=== PATIENT | male | born 1930 | race Caucasian/White ===

== ENCOUNTER 2016-12-24 19:05 | Emergency (ER) | payer MEDICARE, OTHER ==
[~2016-12-24 19:05] MED LIST: AMLO10TA5 PO; ASP81TEC PO; BRIM10DR12 OS; COU5 PO; DIGO125T PO; DORZ10DR20 OU; DOXY100T2 PO; FURO40TA PO; LATA2.5D6 OU; METO25T PO; PRO5 PO; ZES5 PO; ZOC20 PO; [UNRECOGNIZED DRUG - CODE] PO
[2016-12-24] MEDS ORDERED: Rocuronium 10 mg/mL 5 mL Inj IV ONE (19:06)
[2016-12-24] MEDS ORDERED: Propofol 10,000 mCg/mL 100 mL Inj ONE (19:18)
[2016-12-24] MEDS ORDERED: 0.9% Sodium Chloride 1,000 ML IV ONE (19:25)
[2016-12-24 19:34] LABS: BASOPHILS % (AUTO) 0.3 % (0-3); EOSINOPHILS % (AUTO) 0.9 % (0-5); MONOCYTES % (AUTO) 10.7 % (4-12); Mean Corpuscular Hemoglobin 27.7 pg (27.0-35.0); Mean Corpuscular Volume 87.7 fL (81-100); NEUTROPHILS % (AUTO) 41.7 % (40-74); Platelet Count 205 bil/L (150-400)
--- NOTE | 2016-12-24 19:40 | ED.REPORT ---
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 Medics were called to the patient's home because he had become unresponsive. Upon their arrival he was sitting upright the subsequently began to demonstrate seizure-like activity with unequal pupils. In route seizure activity worsened and he became apneic at which time bag valve mask ventilation was initiated. There is no known traumatic injury. There is no known history of stroke or seizure disorder. Nursing Notes Stated Complaint: CODE STROKE Nursing Notes Reviewed: Yes Allergies: Coded Allergies: No Known Allergies (Unverified , 12/17/11) Scheduled AmLODIPine-Expunged Drug, Do Not Renew! (AmLODIPine-Expunged Drug, Do Not Renew! ) 10 Mg Tablet 10 MG PO DAILY This medication is to help control blood pressure Aspirin-Expunged Drug, Do Not Renew! (Aspirin EC-Expunged Drug, Do Not Renew!) 81 Mg Tablet 81 MG PO DAILY Brimonidine-Expunged Drug, Do Not Renew! (Brimonidine-Expunged Drug, Do Not Renew!) 10 Ml Drops 1 DROP OS BID Digoxin-Expunged Drug, Do Not Renew! (Digoxin-Expunged Drug, Do Not Renew!) 125 Mcg Tablet 125 MCG PO DAILY This medication helps regulate heart rate and rhythm Doxycycline Hyclate (Doxycycline) 100 Mg Tab 100 MG PO BID Finasteride-Expunged Drug, Do Not Renew! (Proscar-Expunged Drug, Do Not Renew!) 5 Mg Tablet 5 MG PO HS Furosemide-Expunged Drug, Do Not Renew! (Lasix-Expunged Drug, Do Not Renew!) 40 Mg Tablet 80 MG PO DAILY Your dose has been decreased to ONCE a day. This is a diuretic. Lisinopril-Expunged Drug, Do Not Renew! (Lisinopril-Expunged Drug, Do Not Renew! ) 5 Mg Tablet 5 MG PO BID Your dose has been decreased to 5mg daily. This medication helps to control blood pressure MAGNESIUM OXIDE-Expunged Drug, Do Not Renew! (MAG-OX 400-Expunged Drug, Do Not Renew!) 400 Mg Tablet 400 MG PO BID Metoprolol Tart-Expunged Drug, Do Not Renew! (Metoprolol Tart-Expunged Drug, Do Not Renew!) 25 Mg Tablet 12.5 MG PO BID do not take if your heart rate is less than 55 beats per minute. Simvastatin-Expunged Drug, Choose New Med! (Simvastatin-Expunged Drug, Choose New Med!) 20 Mg Tablet 40 MG PO HS This medication helps to control blood cholesterol levels Timol/Dorzol-Expunged Drug, Do Not Renew! (Timol/Dorzol Oph-Expunged Drug, Do Not Renew!) 10 Ml Drops 1 DROP OU BID Warfarin Inactive Drug Do Not Use (Coumadin Inactive Drug Do Not Use) 5 Mg Tablet 5 MG PO DAILY General Time Seen by Provider: 19:24 Chief Complaint Other (Stroke-like symptoms ) Hx Obtained From: EMS Arrived By: Ambulance Sudden in Onset?: Yes Onset Occurred: Just prior to arrival Symptom Duration: Since onset Progression Since Onset: Gradually worsening Pertinent Negative: Pt denies other symptoms Recent Healthcare: No recent doctor visit, No recent hospitalization Risk Factors TPA Administration/Criteria Stroke Thrombolytic Therapy : TPA Considered: Yes Neurologist Contacted: No Exclusion Criteria: On anticoagulant INR >1.7 Relative Exclusion Crit: Seizure at onset Addl Ex Criteria 3-4.5 Hr: Age > 80 years, On oral anticoagulant Past Medical History Past Medical History Tachybrady syndrome Atrial fibrillation Reports: Hyperlipidemia, Hypertension Reports: Atrial flutter, Depression Past Surgical History Hernia repair TURP x3 Reports: Appendectomy Reports: Pacemaker insertion Smoking History Unknown if Ever Smoker Social History Alcohol Use: 1-3 per week Other Social History: Good social support, Local resident Ambulatory Status Independent Unable to Obtain History Past medical history, Past surgical history, Family history, Smoking history, Social history, Occupation, Ambulatory status Review of Systems Unable to Obtain ROS Intubated Physical Exam Initial Vital Signs Vital Signs (First) Date Time Temp Pulse Resp B/P Pulse Ox O2 Delivery O2 Flow Rate FiO2 12/24/16 19:50 100 Initial VS: Reviewed Neck: Supple, Non-tender, Full range of motion Extremities: Vascular intact, Neuro intact, No swelling, No tenderness Skin: Warm, Dry, No cyanosis GENERAL/CONSTITUTIONAL: Patient is actively seizing Head / Eyes: Atraumatic (Face and scalp are atraumatic), Normocephalic Pupils: Positive: Dilated L (Dilated as compared to the right), Sluggish L ( Minimally reactive) Eye Movement: Positive: Nystagmus present (Left nystagmus present) Respiratory / Chest: Atraumatic Resp Distress / Stridor: Positive: Intubated Cardiovascular: Heart rate NL, Regular rhythm, Heart sounds NL, No gallop, No murmurs, No rubs NEURO: Acuity of pt presentation and airway management due to intubation - Neurology exam is extremely limited. Actively seizing Abdomen: Atraumatic, Soft Interpretation & Diagnostics Lab Results Interpretation Result Diagram: 12/24/16192412/24/161924 Test 12/24/16 19:25 12/24/16 20:08 White Blood Count 9.4th/mm3 (3.8-10.1) Red Blood Count 5.59mil/mm3 (4.40-5.80) Hemoglobin 15.5g/dL (13.8-17.2) Hematocrit 49.0% (41.0-50.0) Mean Corpuscular Volume 87.7fL (81-100) Mean Corpuscular Hemoglobin 27.7pg (27.0-35.0) Mean Corpuscular Hemoglobin Concent 31.6% (32.0-37.0) Red Cell Distribution Width 15.8% (12.3-15.4) Platelet Count 205bil/L (150-400) Neutrophils (%) (Auto) 41.7% (40-74) Lymphocytes (%) (Auto) 46.1% (14-46) Monocytes (%) (Auto) 10.7% (4-12) Eosinophils (%) (Auto) 0.9% (0-5) Basophils (%) (Auto) 0.3% (0-3) Hold Purple Top Tube Received (Received) Prothrombin Time 24.9sec (8.1-12.5) Prothromb Time International Ratio 2.29ratio Hold Blue Top Tube Received (Received) Sodium Level 139mEq/L (134-144) Potassium Level 3.2mEq/L (3.5-5.2) Chloride Level 94mEq/L (97-108) Carbon Dioxide Level 15mmol/L (18-29) Blood Urea Nitrogen 16mg/dL (8-27) Creatinine 0.79mg/dL (0.76-1.27) Estimat Glomerular Filtration Rate 99mL/min (>59) Glucose Level 191mg/dL (60-99) Lactic Acid Level 15.0mmol/L (0.4-2.0) Calcium Level 9.8mg/dL (8.5-10.1) Total Bilirubin 1.7mg/dL (0.0-1.2) Aspartate Amino Transf (AST/SGOT) 28U/L (0-50) Alanine Aminotransferase (ALT/SGPT) 20U/L (0-44) Alkaline Phosphatase 85U/L (25-160) Troponin T < 0.010ug/L (0.0-0.011) Total Protein 7.8g/dL (6.4-8.4) Albumin 4.3g/dL (3.4-5.0) Hold Red Top Tube Received (Received) Hold [place] Top Tube Received (Received) Hold Becerra Top Tube Received (Received) Urine Color Yellow (YELLOW) Urine Appearance Hazy (CLEAR,HAZY) Urine pH 5.5 (5.0-8.0) Urine Specific [place] 1.025 (1.003-1.035) Urine Protein 100mg/dL (NEG,TRACE) Urine Glucose (UA) Negativemg/dL (NEGATIVE) Urine Ketones Negativemg/dL (NEGATIVE) Urine Occult Blood Trace (NEGATIVE) Urine Nitrite Negative (NEGATIVE) Urine Bilirubin Negative (NEGATIVE) Urine Urobilinogen Normalmg/dL (NORMAL) Urine Leukocyte Esterase Negative (NEGATIVE) Urine RBC 0-2/hpf (0-2) Urine WBC 0-5/hpf (0-5) Urine Epithelial Cells Moderate/hpf (NONE-MOD) Urine Crystals None seen (NONE SEEN) Urine Bacteria Few/hpf (NONE-FEW) Urine Hyaline Casts None/lpf (NONE) Urine Granular Casts None seen (NONE SEEN) Urine Waxy Casts None seen (NONE SEEN) Urine Red Blood Cell Casts None seen (NONE SEEN) Urine White Blood Cell Casts None seen (NONE SEEN) Urine Mucus Present (None Seen) Urine Trichomonas None seen (NONE SEEN) Urine Yeast None (NONE SEEN) Urinalysis Comment Amorphous sediment Urine Culture Reflexed Not indicated ECG Interpretation ECG Interpretation: Sinus Rhythm Rate 73 IVC delay - nonspecific No ST elevation or T wave abnormalities Time: 19:30 Interpreted by: ED physician X-Ray Chest Interpretation Chest Xray Interpretation: IMPRESSION: ET and enteric tube in appropriate position. New left-sided cardiac pacer. No acute pulmonary findings. Dictated by: Miguel A Saldaña M.D. on 12/24/2016 at 20:10 Approved by: Miguel A Saldaña M.D. on 12/24/2016 at 20:12 View: Portable, 1 view Interpretation / Wet Read by: Interpret - Radiologist CT Head Interpretation IMPRESSION: 1. Large acute hemorrhage in the left frontal lobe white matter causing 3 mm left to right midline shift. 2. Small focus of left inferior lateral left frontal lobe acute hemorrhage. 3. Findings and recommendations discussed with Dr. Keenan via telephone [phone] at 7:50 pm on 12/24/2016 Dictated by: Miguel A Saldaña M.D. on 12/24/2016 at 19:35 Approved by: Miguel A Saldaña M.D. on 12/24/2016 at 19:45 Study: Head CT no contrast Interpretation / Wet Read by: Interpret - Radiologist, Discussed w radiologist Procedures Intubation Time: 19:20 Procedure Performed by: ED physician Consent / Setup / Site Prep: No consent - emergent, Time-out performed, Oxygen administered, Pulse oximeter applied, aircraft structural repairer applied Patient Position: Sniff position Blade / ET Tube / Route: [place] scope Procedural Sedation/Analgesia: Sedation: Etomidate Neuromuscular Agent: Rocuronium ET Confirmation: Direct visualization, BS equal, End tidal CO2 device, Rising O2 sat Secured / Marked: ET tube device, Tube marked at ___ cm (25) Complications: None Post-Procedure: Condition improved, Tolerated procedure well, Patient stable Re-Eval/Medical Decision Med Decision/Clinical Course Patient is an 86 year old male with a hx of HTN, hyperlipidemia, A-fib, and 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 Medics were called to the patient's home because he had become unresponsive. Upon their arrival he was sitting upright the subsequently began to demonstrate seizure-like activity with unequal pupils. In route seizure activity worsened and he became apneic at which time bag valve mask ventilation was initiated. There is no known traumatic injury. There is no known history of stroke or seizure disorder. Upon arrival to the emergency department the patient is demonstrating active seizure activity and is apneic with ongoing bag valve mask ventilation. He is not protecting his airway. He has obvious leftward nystagmus with unequal pupils. The decision was made to proceed with rapid sequence intubation as documented above. Procedure was performed for ease and he maintained 100% oxygen saturation throughout. HEAD CT: IMPRESSION: 1. Large acute hemorrhage in the left frontal lobe white matter causing 3 mm left to right midline shift. 2. Small focus of left inferior lateral left frontal lobe acute hemorrhage. 3. Findings and recommendations discussed with Dr. Keenan via telephone [phone] at 7:50 pm on 12/24/2016 EKG Sinus Rhythm Rate 73 IVC delay - nonspecific No ST elevation or T wave abnormalities Chest X-ray IMPRESSION: ET and enteric tube in appropriate position. New left-sided cardiac pacer. No acute pulmonary findings. Laboratory studies notable as below: Lactic acid 15 CBC relatively unremarkable CMP are relatively unremarkable Troponin within normal limits INR 2.[address] scan findings I administered 10 mg of IV vitamin K as well as Kcentra. Head of bed was maintained at 45. Patient's blood pressure was at a call and no blood pressure management was needed. Sensation is CONSISTENT with acute hemorrhagic stroke and resultant seizure activity. Patient was started on loading dose of IV Keppra and discussed with neurology at [facility]. Family was updated and the patient was transferred in critical condition by helicopter. Re-Evaluation/Progress #1: Time of Eval: 19:20 Patient Status: Condition improved Re-Evaluation/Progress Note: Patient is intubated. He tolerates the procedure well. Re-Evaluation/Progress #2: Time of Eval: 19:45 Re-Evaluation/Progress Note: Discussed pt case with family of pt. Re-Evaluation/Progress #3: Time of Eval: 20:10 Re-Evaluation/Progress Note: Patient is rechecked. Family is informed of the plan to transfer to [facility] after concerning CT scan. All questions are addressed. Consultation #1: Call Returned at: 19:57 Online Marketing Specialist: Agrees with eval, Agrees with plan Note: Discussed pt case with [facility]. Accepting physician will be Dr. Yu. Consultation #2: Call Returned at: 20:06 Online Marketing Specialist: Will see patient, Agrees with eval, Agrees with plan, Accepts admit Note: Discussed pt case with Dr. Yu at [facility]. Accepts admit. Counseled Regarding: Diagnosis, Lab results, Need for transfer Discharge & Departure Impression: Primary Impression: Intracranial hemorrhage Additional Impressions: Seizure Anticoagulated on Coumadin Lactic acidosis Acute respiratory failure Respiratory failure complication: unspecified whether with hypoxia or hypercapnia Qualified Code: J96.00 - Acute respiratory failure, unspecified whether with hypoxia or hypercapnia Disposition: Transfer, Acute Care Facility Receiving Hospital: Pt accepted by Dr. Yu at [facility]. Transfer Accepted at: 20:07 Transfer Reason: Higher level of care Patient Status: Stable for transfer Patient Informed: Unable Discharge Condition All VS Reviewed: Yes Condition: Stable Referrals: Adam Centeno MD (PCP) Crit Care Except Billable Proc Time Spent: 135-164 minutes Services Performed: Patient management by me, Time spent at bedside, Reviewing test results, Reviewing imaging, Discussing patient care, Documentation in record, Time with fam/surrogate Critical Care Notes: Arranging transfer, discussions with family, discussions with accepting physician at [facility], documentation. Vanda Attestation Portions of this note were transcribed by Dot Gorman and Elvira Borges. I, Dr. Keenan personally performed the history, physical exam and medical decision-making; I reviewed and confirmed the accuracy of the information in the transcribed note. Signed by: Vanda Kovacs, 12/24/16 [id number]. Signed by: Vanda Eden, 12/24/161999. copies to: Adam Centeno MD, Beck O MD Dec 24, 2016 19:39 DOT GORMAN Dec 24, 2016 19:46 ELVIRA BORGES Dec 24, 2016 23:45
[2016-12-24] MEDS ORDERED: Phytonadione (Adult) 10 mg/50 mL NS IV PRN ×2 (19:45)
[2016-12-24] MEDS ORDERED: Phytonadione (Adult) 10 mg/50 mL NS IV ONE ×2 (19:45)
[2016-12-24 19:47] LABS: INR 2.29 ratio
[2016-12-24 19:50] VITALS: O2SAT 100
--- NOTE | 2016-12-24 19:52 | DRSVH ---
PROCEDURE: CT BRAIN WITHOUT CONTRAST ([id number]) INDICATIONS: dec LOC TECHNIQUE: Noncontrast 4.5 mm thick angled axial sections acquired from the foramen magnum to the vertex, with c oronal reformats. COMPARISON: [facility], CT, ABD/PELVIS W/CON (PNL), 11/30/2011, 15:24. FINDINGS: Image quality: Excellent. CSF spaces: Basal cisterns are patent. No extra-axial fluid collections. Ventricles are normal in size and shape. Brain: Acute hemorrhage in the white matter of the superior left frontal lobe measuring 4 x 3 x 2.6 C M with surrounding edema. There is a 0.4 cm focus of acute hemorrhage in the peripheral inferior late ral left frontal lobe (se 2 im 22). There is 3 mm midline shift. Generalized cerebral and cerebellar atrophy. Low-density in the subcortical and subinsular white matter consistent with chronic benign i schemic change. Skull and face: Calvarium and visualized facial bones are intact, without suspicious lesions. Sinuses: Visualized sinuses and mastoids are clear. IMPRESSION: 1. Large acute hemorrhage in the left frontal lobe white matter causing 3 mm left to right midline sh ift. 2. Small focus of left inferior lateral left frontal lobe acute hemorrhage. 3. Findings and recommendations discussed with Dr. Keenan via telephone [phone] at 7:50 pm on Dictated by: Miguel A Saldaña M.D. on 12/24/2016 at 19:35 Approved by: Miguel A Saldaña M.D. on 12/24/2016 at 19:45
[2016-12-24] MEDS ORDERED: levETIRAcetam Inj 1,000 MG in IV Premix 1 EACH IV ONE (19:55)
[2016-12-24 20:00] LABS: TROPONIN T < 0.010 ug/L (0.0-0.011)
[2016-12-24] MEDS ORDERED: PROTHROMBIN COMPLEX IV ONE ×2 (20:10)
[2016-12-24] MEDS ORDERED: [UNRECOGNIZED DRUG - OTHER] IV ONE ×2 (20:10)
[2016-12-24 20:17] LABS: APPEARANCE,URINE HAZY (CLEAR,HAZY); COLOR,URINE YELLOW (YELLOW); OCCULT BLOOD,URINE TRACE (NEGATIVE); PH,URINE 5.5 (5.0-8.0); UROBILINOGEN,URINE NORMAL (NORMAL)
--- NOTE | 2016-12-24 20:19 | DRSVH ---
PROCEDURE: X-RAY CHEST ONE VIEW, PORTABLE ([id number]) INDICATIONS: tube placement TECHNIQUE: One view of the chest was acquired. COMPARISON: [facility], , CHEST 1VW (PORTABLE), 01/16/2011, 14:45. FINDINGS: Surgical changes and devices: ET tube with tip 6 CM above the nila. Enteric tube with tip below the diaphragm. Left-sided cardiac pacer. Lungs and pleura: No pleural effusions or pneumothorax. Bibasilar scarring otherwise the lungs are c lear. Mediastinum: Mediastinal contours appear normal. Heart size is normal. Bones and chest wall: No suspicious bony lesions. Overlying soft tissues appear unremarkable. IMPRESSION: ET and enteric tube in appropriate position. New left-sided cardiac pacer. No acute pulmo nary findings. Dictated by: Miguel A Saldaña M.D. on 12/24/2016 at 20:10 Approved by: Miguel A Saldaña M.D. on 12/24/2016 at 20:12
--- NOTE | 2016-12-24 20:31 | ABG ---
DateTimeAnalyzed 20:24:16 -_ pH ____7.376 - 7.350 7.450 pCO2 ___40.1__ -mmHg 35.0 45.0 pO2 433 -mmHg 70.0 100 HCO3- ___23.5__ -mmol/L 22.0 26.0 ABE ___-1.6__ -mmol/L -2.0 2.0 tHb ___14.1__ -g/dL 12.0 18.0 O2Hb ___98.9__ -% 95.0 COHb ____1.2__ -% 1.5 MetHb ____0.4__ -% 0.4 1.5 FIO2 ___21.0__ -% PEEP ____5.0__ -cmH2O Set_RR 24 -b/min Drawn By MD - Date/Time Notified____ 20:31:00 -_ Spontaneous_RR 24 -b/min A/C __500.0__ - Oxygen Device 1 VENTILATOR - Notified By MD - Notified Whom DR [address] - K+ ____2.9__ -mmol/L Adrian test N/A -
== END 2016-12-24 21:26 | disposition short-term general hospital (02) ==
LOC: SED 19:05 → EDBD 19:05 → EDUNIT# 19:05 → SED 21:26
DX: I62.9 Nontraumatic intracranial hemorrhage, unspecified (principal); J96.00 Acute respiratory failure, unspecified whether with hypoxia or hypercapnia; R56.9 Unspecified convulsions; E87.2 Acidosis; I11.9 Hypertensive heart disease without heart failure; I48.91 Unspecified atrial fibrillation; F32.9 Major depressive disorder, single episode, unspecified; E78.5 Hyperlipidemia, unspecified; Z95.0 Presence of cardiac pacemaker; Z79.01 Long term (current) use of anticoagulants
CPT/HCPCS: 31500; 36415; 36620; 43753; 51702; 70450; 71010; 80053; 81000; 82375; 82803; 83605; 84484; 85025; 85610; 86850; 93005; 94002; 94799; 96365; 96375; 99291; 99292; C9132; J1953; J3430